=== PATIENT | female | born 1980 | race Caucasian/White ===

== ENCOUNTER → 2020-10-03 | Outpatient (CLI) | payer BC ==
--- NOTE | 2020-10-03 15:56 | US ---
EXAMINATION TYPE: US abdomen complete DATE OF EXAM: 10/03/2020 COMPARISON: NONE CLINICAL HISTORY: R10.11 RUQ pain R10.13 Upper gastric pain. EXAM MEASUREMENTS: Liver Length: 14.3 cm Gallbladder Wall: 0.3 cm CBD: 0.3 cm Spleen: 9.1 cm Right Kidney: 11.1 x 3.5 x 4.0 cm Left Kidney: 11.1 x 4.9 x 4.4 cm Pancreas: partially obscured by bowel gas Liver: wnl Gallbladder: mobile stone, no wall thickening Evidence for sonographic Rendon's sign: no CBD: wnl Spleen: wnl Right Kidney: multiple probable kidney stones, largest measuring 1.3 x 0.5 x 0.7cm Left Kidney: multiple probable kidney stones, largest measuring 0.4 X 0.3 X 0.4 cm Upper IVC: wnl Abd Aorta: bifurcation obscured by bowel gas IMPRESSION: 1. Cholelithiasis. 2. Nonobstructing renal stones bilaterally
== END | disposition home or self-care (01) ==
LOC: RADUSWWP 07:35
PROVIDERS: ATTEND Family Medicine
DX: K80.20 Calculus of gallbladder without cholecystitis without obstruction (principal); N20.0 Calculus of kidney
CPT/HCPCS: 76700

== ENCOUNTER 2021-01-28 08:25 | Day surgery (SDC) | payer BC ==
[2021-01-25 09:30] VITALS: BMI 23.6
[~2021-01-28 08:25] MED LIST: ACETAMINOPHEN TAB 500 MG TAB PO PRN; DEXAMETHASONE SOD PHOSPHATE 4 MG/ML 1 ML VIAL IV ONE; HEPARIN SODIUM,PORCINE/PF 5,000 UNIT/0.5 ML SYRINGE SQ PRN; LACTATED RINGERS 1,000 ML IV SCH; LIDOCAINE 1% (10MG/ML) FOR IV START INTRADERMA PRN; MIDAZOLAM 2 MG/2 ML VIAL IV PRN; ONDANSETRON 4 MG/2 ML VIAL IVP ONE
[2021-01-28] MEDS ORDERED: KETOROLAC 15 MG/ML 1 ML VIAL ONE (09:45)
[2021-01-28] MEDS ORDERED: NEOSTIGMINE 1 MG/ML 10 ML VIAL ONE (09:45)
[2021-01-28] MEDS ORDERED: fentaNYL (PF) 50 MCG/ML 2 ML AMP ONE (09:45)
[2021-01-28] MEDS ORDERED: KETAMINE 10 MG/ML 20 ML VIAL ONE (09:45)
[2021-01-28] MEDS ORDERED: LIDOCAINE 1% INJ 10MG/ML (20 ML MDV) ONE (09:45)
[2021-01-28] MEDS ORDERED: SUCCINYLCHOLINE CHLORIDE 100 MG/5 ML SYR IV ONE (09:45)
[2021-01-28] MEDS ORDERED: GLYCOPYRROLATE 0.2 MG/ML 2 ML VIAL ONE (09:45)
[2021-01-28] MEDS ORDERED: PROPOFOL 10 MG/ML 20 ML VIAL IV ONE (09:45)
[2021-01-28] MEDS ORDERED: MIDAZOLAM 2 MG/2 ML VIAL ONE (09:45)
[2021-01-28] MEDS ORDERED: BUPIVACAINE (PF) 0.25% 30 ML VIAL SQ ONE ×2 (09:46→10:07)
[2021-01-28 10:44] VITALS: TEMP 97
--- NOTE | 2021-01-28 10:47 | P.OP ---
Date of Procedure: 01/28/21 Procedure(s) Performed: PREOPERATIVE DIAGNOSIS: Chronic cholecystitis POSTOPERATIVE DIAGNOSIS: Same PROCEDURE: Laparoscopic cholecystectomy SURGEON: Leonard EBL: Minimal see anesthesia record ANESTHESIA: Gen. COMPLICATIONS: None OPERATIVE PROCEDURE: The patient was brought and placed on the operating room table in the supine position. The patient was placed under general anesthesia at that time. The abdomen was prepped and draped in the usual sterile fashion. A small vertical infraumbilical incision was made. The fascia was grasped with the Cesar forceps. The fascia was retracted anteriorly. The Veress needle was advanced into the peritoneal cavity. The saline drop test was normal. Insufflation took place up to 15 mmHg. A 5 mm optical trocar was advanced and the peritoneal cavity. 2 additional 5 mm trochars were placed in the right upper quadrant under direct visualization. A 12 mm trocar was advanced into the epigastric incision site. The gallbladder was retracted superiorly and laterally. The peritoneum overlying the infundibulum was bluntly dissected. The patient's cystic duct was visualized. The junction between the cystic duct common and hepatic duct was identified. The critical view of safety was achieved after blunt dissection. The cystic duct was then divided after placement of 3 12 mm clips on the patient's side and one on the specimen side. The cystic artery was identified and clipped as well. A small vessel was seen along the gallbladder fossa and clipped as well. The gallbladder was then removed from the liver bed using electrocautery. The gallbladder was then removed from the epigastric trocar site with an Endo Catch bag. The gallbladder fossa was irrigated with saline. There was no evidence of any bleeding or biliary drainage seen. The fascia at the 12 millimeter site was closed using a Roman-Rigo 0 Vicryl stitch. The trochars were then removed. The skin at all 4 sites was closed using a 4-0 Monocryl stitch. Skin glue was utilized on the incision sites. At the end of this procedure the sponge and needle counts were correct. DISPOSITION: Stable to the recovery room
[2021-01-28] MEDS: HYDROmorphone 0.5 MG/0.5 ML SYRINGE IVP PRN ×2 (10:50→11:08)
[2021-01-28 10:56] VITALS: RESP 16
[2021-01-28] MEDS ORDERED: SODIUM CHLORIDE 0.9% 1,000 ML IV ONE ×2 (11:10)
[2021-01-28 11:55] VITALS: PULSE 83
[2021-01-28] MEDS ORDERED: ACETAMINOPHEN TAB 325 MG TAB PO SCH (12:00)
[2021-01-28 12:04] VITALS: BP 137/85
[2021-01-28] MEDS ORDERED: IBUPROFEN 600 MG TAB PO SCH (13:45)
== END 2021-01-28 12:33 | disposition home or self-care (01) ==
LOC: OR 08:25
PROVIDERS: ATTEND Surgery
DX: K80.10 Calculus of gallbladder with chronic cholecystitis without obstruction (principal); I25.2 Old myocardial infarction; F17.210 Nicotine dependence, cigarettes, uncomplicated; Z86.73 Personal history of transient ischemic attack (TIA), and cerebral infarction without residual deficits; Z85.3 Personal history of malignant neoplasm of breast
CPT/HCPCS: 47562; 81025; 88304; J2250; J1100; J2710; J0690; J2405; J2001; J3010; J1885; J0330; J2704; J1170; J1644